=== PATIENT | male | born 1965 | race American Indian/Alaskan Native ===

== ENCOUNTER 2020-05-27 05:57 | Day surgery (SDC) | payer OTHER ==
[~2020-05-27 05:57] MED LIST: WATER FOR IRRIG STERILE 1,000 ML BOTTLE ONE; WATER FOR IRRIG STERILE 250 ML BOTTLE IR ONE
[2020-05-27] MEDS ORDERED: SODIUM CHLORIDE 0.9% 1000 ML 1,000 ML IV SCH (07:30)
--- NOTE | 2020-05-27 07:53 | Anesthesia Consultation ---
Anesthesia Consult and Med Hx Date of service: 05/27/20 - Airway Anesthetic Teeth Evaluation: Good ROM Head & Neck: Adequate Mental/Hyoid Distance: Adequate Mallampati Class: Class II Intubation Access Assessment: Probably Good - Pre-Operative Health Status ASA Pre-Surgery Classification: ASA1 Proposed Anesthetic Plan: MAC - Pulmonary Hx Smoking: No Hx Asthma: No Hx Respiratory Symptoms: No SOB: No COPD: No Home Oxygen Therapy: No Hx Pneumonia: No Hx Sleep Apnea: Yes - Cardiovascular System Hx Hypertension: No Hx Coronary Artery Disease: No Hx Heart Attack/AMI: No Hx Angina: No Hx Percutaneous Transluminal Coronary Angioplasty (PTCA): No Hx Cardia Arrhythmia: No Hx Pacemaker: No Hx Internal Defibrillator: No Hx Valvular Heart Disease: No Hx Heart Murmur: No Hx Peripheral Vascular Disease: No - Central Nervous System Hx Neuromuscular Disorder: No Hx Seizures: No CVA: No Hx Back Pain: No Hx Psychiatric Problems: No - Gastrointestinal Hx Ulcer: No Hx Gastroesophageal Reflux Disease: No - Endocrine Hx Renal Disease: No Hx End Stage Renal Disease: No Hx Cirrhosis: No Hx Liver Disease: No Hx Insulin Dependent Diabetes: No Hx Non-Insulin Dependent Diabetes: No Hx Thyroid Disease: No Hx Hypothyroidism: No Hx Hyperthyroidism: No - Hematic Hx Anemia: No Hx Sickle Cell Disease: No - Other Systems Hx Alcohol Use: Yes (occ.) Hx Substance Use: No Hx Cancer: No Hx Obesity: No
--- NOTE | 2020-05-27 07:53 | Anesthesia Day of Surgery ---
Anesthesia Day of Surgery - Day of Surgery Patient Examined: Yes Patient H&P Reviewed: Yes Patient is NPO: Yes
[2020-05-27] MEDS ORDERED: LIDOCAINE MPF (2%) 20 MG/1 ML VIAL 5 ML ONE (08:30)
[2020-05-27] MEDS ORDERED: propofoL 200 MG/20 ML VIAL IV ONE ×2 (08:30→08:47)
--- NOTE | 2020-05-27 09:10 | Procedure Note ---
Date of procedure: 05/27/20 Pre-op diagnosis: Colon Polyp Screening/F/H/O Cancer (mother) Post-op diagnosis: other (Cecal Polyp and Mild tyo Moderate Internal Hemorrhoid) Procedure: Colonoscopy with Cold Snare Polypectomy Anesthesia: MAC Surgeon: TITI MCADAMS Estimated blood loss: minimal Pathology: list Specimen disposition: to lab Condition: stable Disposition: same day (Avoid aspirin and NSAID for 5 days; otherwise resume home medication. follow up in 1 to 2 weeks ([phone]).)
--- NOTE | 2020-05-27 09:24 | Operative Report ---
PROCEDURE: Colonoscopy with cold snare polypectomy. INDICATIONS: This is a 54-year-old -[place] gentleman who has had a family history of cancer. The patient's mother had lung cancer. The procedure was done as part of colon polyp screening because of his age. He has never had a colonoscopy done before. DESCRIPTION OF PROCEDURE: The procedure was done after getting informed consent with MAC anesthesia. Initial rectal exam was unremarkable. Instrument was passed through the rectum onto the cecum, which was identified by the ileocecal valve and the appendiceal orifice. The terminal ileum was intubated, showed normal mucosa. The visualization of the colon was fair to good. In the cecum, there was a 10 mm sessile polyp noted that was removed by cold snare polypectomy and retrieved using cold biopsy forceps. The remaining part of the cecum, ascending colon, transverse colon, descending colon, and sigmoid showed normal mucosa. There were no additional polyps, diverticular disease or colitis except for the solitary cecal polyp that was noted and removed. The rectum showed mild to moderate internal hemorrhoid. There was minimal bleeding from the polypectomy site. No complications associated with the procedure. ASSESSMENT: Colon polyp screening, family history of cancer. The patient's mother had lung cancer. Solitary cecal polyp removed by cold snare polypectomy and retrieved, mild to moderate internal hemorrhoid. The patient will be asked to avoid aspirin and aspirin-related products for the next few days. Follow up in the office in 1-2 weeks' time. Otherwise, resume home medication. The procedure was done in the GI lab with assistance of the GI lab team, which included JOANNA Álvarez as well as Valerie echavarria and with assistance of Anesthesia. JOB# [id number] AMY/NICOLE
--- NOTE | 2020-05-27 09:24 | Post Anesthesia Evaluation ---
- Post Anesthesia Evaluation Patient Participated: Yes Airway Patent: Yes Stable Respiratory Function: Yes Nausea/Vomiting: No Temp > 96.8F: Yes Pain Manageable: Yes Adequeate Hydration: Yes Anesthesia Complications: No Block Receding Appropriately: Not Applicable Patient on Ventilator: No
[2020-05-27 09:41] VITALS: BP 122/81
== END 2020-05-27 05:58 | disposition home or self-care (01) ==
LOC: GIO 05:57
DX: Z12.11 Encounter for screening for malignant neoplasm of colon (principal); D12.0 Benign neoplasm of cecum; K57.30 Diverticulosis of large intestine without perforation or abscess without bleeding; K64.8 Other hemorrhoids; G47.30 Sleep apnea, unspecified; Z80.0 Family history of malignant neoplasm of digestive organs; Z80.1 Family history of malignant neoplasm of trachea, bronchus and lung; Z88.2 Allergy status to sulfonamides; Z72.89 Other problems related to lifestyle
CPT/HCPCS: 45385; 88305; J2704; J7030